=== PATIENT | female | born 1970 | race Caucasian/White ===

== ENCOUNTER 2017-04-28 11:23 | Emergency (ER) | payer OTHER ==
[~2017-04-28] VITALS: Ht 165.1 cm; Wt 72.6 kg
[~2017-04-28 11:23] MED LIST: CELEXA20 MG PO; DILAUDID2 MG PO; FLEXERIL10 MG PO; HYDROCODON-ACE1 EAC7 PO; IBUPROFEN200 M1 PO; IRON325 M1 PO; MOBIC15 MG PO; MORPHINE SULFAT30 M2 PO; MULTI-DAY VITA1 EACH PO; NIFEDICAL XL30 MG PO; PRENACARE TABL1 EACH PO; XANAX0.25 MG PO
[2017-04-28] MEDS ORDERED: ZOFRAN ODT4 MG PO (16:02)
[2017-04-28] MEDS ORDERED: CATAPRES-TTS 11 EACH TD (16:02)
[2017-04-28] MEDS ORDERED: BENTYL20 MG PO (16:02)
[2017-04-28 16:14] VITALS: BP 118/64
== END 2017-04-28 16:14 | disposition home or self-care (01) ==
LOC: EME 11:23
DX: F11.23 Opioid dependence with withdrawal (principal); R19.7 Diarrhea, unspecified; R11.0 Nausea; Z98.1 Arthrodesis status; M79.7 Fibromyalgia; Z87.891 Personal history of nicotine dependence
CPT/HCPCS: 99281; 99284